=== PATIENT | female | born 1945 | race Caucasian/White ===

== ENCOUNTER 2018-01-05 10:01 | Day surgery (SDC) | payer OTHER ==
[~2018-01-05 10:01] MED LIST: FLUMAZENIL 0.5 MG/5 ML MDV IVP PRN; MIDAZOLAM 2 MG/2 ML VIAL IVP PRN; NALOXONE HCL 0.4 MG/ML INJ IVP PRN; NS 1,000 ML IV SCH; fentaNYL 100 MCG/2 ML INJ IVP PRN
[2018-01-05] MEDS ORDERED: LIDO/EPI 1% **for epidural** 30 ML SDV ONE (11:20)
[2018-01-05] MEDS ORDERED: LIDOCAINE 1% 300 MG/30 ML SDV ONE (11:21)
--- NOTE | 2018-01-05 11:50 | PDPROPOC ---
Sedation Plan of Care Sedation Plan of Care: vital signs stable, mental status noted, patient educated of risks, benefits, alternatives, patient can tolerate sedation ASA Classification: ASA 1 Planned drugs: fentanyl, midazolam Mallampati Score: Class 1 Mallampati Reference Image: Patient passed 3-3-2 rule?: Yes
--- NOTE | 2018-01-05 11:51 | PDGENHP ---
History & Physical Chief Complaint: LEFT GROIN LYMPHADENOPATHY, HX OF LYMPHOMA History of Present Illness: LEFT GROIN LAD Pertinent Past, Social, Family History: LYMPHOMA. HTN Relevant Physical Exam: SOFT ABDOMEN AND PELVIS Cardiorespiratory Assessment: LUNGS CLEAR, RRR
[2018-01-05] MEDS ORDERED: ACETAMINOPHEN 325 MG TAB PO PRN (12:17)
[2018-01-05] MEDS ORDERED: ONDANSETRON 4 MG/2 ML VIAL IVP PRN (12:17)
--- NOTE | 2018-01-05 12:28 | PDRADPN ---
Radiology Procedure Note Date of Procedure: 01/05/18 Radiologist: Jeff Cleveland Anesthesia: IV Sedation, Local (Specify) Pre-op Diagnosis: LYMPHOMA, LEFT GROIN LAD Post-op Diagnosis: LYMPHOMA , LEFT GROIN LAD Indication: LEFT GROIN LAD Procedure: US GUIDED LEFT GROIN BX Finding(s): ENLARGED LEFT GROIN LAD Inf/Abcess present in the surg proc area at time of surgery?: No Depth: Superfical (Skin SQ) EBL: Minimal Complications: NONE Specimen(s): LEFT LYMPHNODE 5 SPECIMENS INCLUDING HANKS SOLUTION AND FORMALDEHYDE, CYTOLOGY PRESENT
[2018-01-05 13:45] VITALS: BP 144/103
== END 2018-01-05 13:25 | disposition home or self-care (01) ==
LOC: FIMAGING 10:01
PROVIDERS: ATTEND Internal Medicine Hematology & Oncology
PROC: 07BJ3ZX Excision of Left Inguinal Lymphatic, Percutaneous Approach, Diagnostic (ICD-10-PCS; principal; 2018-01-05 12:25)
DX: R59.1 Generalized enlarged lymph nodes (principal); C85.90 Non-Hodgkin lymphoma, unspecified, unspecified site
CPT/HCPCS: 88184-90; 88185-91; J2250; J3010